=== PATIENT | female | born 1960 | race Caucasian/White ===

== ENCOUNTER 2018-02-05 16:13 | Emergency (ER) | payer BC, OTHER ==
[2018-02-05 16:31] VITALS: BP 120/83
--- NOTE | 2018-02-05 16:43 | ED Physician Documentation ---
Fall - HPI Stated Complaint: Fall Chief Complaint: Fall Additional Information: Patient presents to ED after falling down the basement steps this morning. She states she went down about 10 steps on her bottom, reaching the end of the steps and hitting her left neck on the railing. Since that time she has had left neck and sacrum pain. She rates 8/10 on pain without ibuprofen and 4/10 with Ibuprofen onboard. Onset: today Where: home Context: slipped r: mild Associated Symptoms:: no loss of consciousness Location of Pain/Injury: neck, other (sacrum/coccyx ) Injury to Right Extremity: none Injury to Left Extremity: none Further Comments: no - ROS CONST: no problems NEURO: denies: dizziness MS/SKIN/LYMPH: neck pain. denies: weakness, numbness, back pain EYES/ENT: none CVS/RESP: denies: chest pain GI/: denies: nausea, vomiting - PAST HX Past History: none Allergies/Adverse Reactions: Allergies Allergy/AdvReac Type Severity Reaction Status Date / Time No Known Drug Allergies Allergy Verified 02/05/18 17:02 Home Medications: Ambulatory Orders Medication Instructions Recorded NK 02/05/18 - SOCIAL HX Smoking History: non-smoker Alcohol Use: none Drug Use: none - FAMILY HX Family History: none - VITAL SIGNS Vital Signs: Vital Signs Temp Pulse Resp BP Pulse Ox 99 H 15 120/83 97 02/05/18 16:20 02/05/18 16:20 02/05/18 16:20 02/05/18 16:20 - REVIEWED ASSESSMENTS Nursing Assessment Reviewed: Yes Vitals Reviewed: Yes ED Results Lab/Radiology - Radiology Radiology Impressions: Cervical spine 3 views Clinical history: Trauma No visible fracture, dislocation or bone destruction. Good alignment of the cervical spine. Disc spaces are well maintained. Impression: Normal cervical spine Electronically signed on Feb 05, 2018 5:43:58 PM ADJUSTO WRITER OPERATOR by: Javier Calle Sacrum and coccyx 3 views Clinical history: Trauma No definite evidence of visible fractures or other additional bony pathology in the sacrum or coccyx. Impression: No acute fractures. Electronically signed on Feb 05, 2018 5:43:06 PM ADJUSTO WRITER OPERATOR by: Javier Mcgill Physical Exam - Physical Exam General Appearance: no acute distress, alert. 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 Head: non-tender, no obvious injury Neck: non-tender, pain with neck movement (left side) Eye: TY ENT: nml external inspection Resp/CVS: chest non-tender, breath sounds nml Abdomen: soft, normal bowel sounds Neuro: oriented x3, motor nml Skin: color nml, no rash Back: normal inspection, no CVA tenderness, no vertebral tenderness Extremities: atraumatic, pelvis stable Joint: nml ROM - [place] Coma Score Eyes Open: Spontaneous Speech: Oriented Motor: Obeys Commands Discharge Clincal Impression: Fall (on) (from) other stairs and steps, initial encounter Referrals: Javier Real MD [Primary Care Provider] - 2 Days Additional Instructions: 1. Tylenol and/or Ibuprofen as needed for pain/swelling. These medications may be taken together at the same time for better pain control. Ibuprofen helps with inflammation/swelling better than tylenol. 2. Apply Ice to affected areas as needed for comfort 3. Follow up with PCP within 1 week 4. Return to ER with new or worsening symptoms. Condition: Stable Disposition: 01 HOME, SELF-CARE Decision to Admit: NO Date of Decison to Admit: 02/05/18 Decision Time: 17:52
--- NOTE | 2018-02-05 17:58 | Diagnostic Imaging Report ---
ANA JOHNSON [facility] [address] [facility] [address] [id number] Report Submission Date: Feb 05, 2018 5:43:06 PM BUSINESS PROCESS CONSULTANT Patient Study Name: SUSI SHIPLEY Date: Feb 05, 2018 4:59:59 PM BUSINESS PROCESS CONSULTANT Modality Type: DX Gender: F Description: SPINE : 56 Institution: [facility] Physician: ANA JOHNSON Sacrum and coccyx 3 views Clinical history: Trauma No definite evidence of visible fractures or other additional bony pathology in the sacrum or coccyx. Impression: No acute fractures. Electronically signed on Feb 05, 2018 5:43:06 PM BUSINESS PROCESS CONSULTANT by: Javier AGUIRRE
--- NOTE | 2018-02-05 17:58 | Diagnostic Imaging Report ---
ANA JOHNSON [facility] [address] [facility] [address] [place] [address]. [id number] Report Submission Date: Feb 05, 2018 5:43:58 PM MAINTENANCE WELDER Patient Study Name: SUSI SHIPLEY Date: Feb 05, 2018 4:54:14 PM MAINTENANCE WELDER Modality Type: DX Gender: F Description: SPINE : 56 Institution: [facility] Physician: ANA JOHNSON Cervical spine 3 views Clinical history: Trauma No visible fracture, dislocation or bone destruction. Good alignment of the cervical spine. Disc spaces are well maintained. Impression: Normal cervical spine Electronically signed on Feb 05, 2018 5:43:58 PM MAINTENANCE WELDER by: Javier AGUIRRE
== END 2018-02-05 18:06 | disposition home or self-care (01) ==
LOC: ED 16:13
DX: M54.2 Cervicalgia (principal); M53.3 Sacrococcygeal disorders, not elsewhere classified; W10.9XXA Fall (on) (from) unspecified stairs and steps, initial encounter; Y93.9 Activity, unspecified; Y92.008 Other place in unspecified non-institutional (private) residence as the place of occurrence of the external cause
CPT/HCPCS: 72040; 72220; 99282; 99284